=== PATIENT | male | born 1950 | race Caucasian/White ===

== ENCOUNTER → 2019-03-24 16:15 | Outpatient (CLI) | payer MEDICARE, SELFPAY ==
[2015-02-05 16:04] VITALS: BMI 36.8
[2019-03-24 17:35] LABS: Microalbumin,Random Urine 23.1 mg/L (NO RANGE EST.)
[2019-03-24 17:41] LABS: Anion Gap 5 (5-15); BUN 34 mg/dL (7-18); BUN/Creat Ratio 17.4 RATIO (10-20); Chloride 104 mmol/L (98-107); Cholesterol 130 mg/dL (200); Creatinine, Serum 1.95 mg/dL (0.70-1.30); EST Glomerular Filtration Rate 37 mL/min (>60); Est Glom Filt Rate - Afr Amer 44 mL/min (>60); Glucose 125 mg/dL (74-106); High Density Lipoprotein 29 mg/dL; PSA,Total - Annual Screen 3.19 ng/mL (0.00-4.00); Potassium 4.5 mmol/L (3.5-5.1); Sodium Level 139 mmol/L (136-145); Triglycerides 355 mg/dL; Very Low Density Lipoprotein 71 mg/dL (5-40)
== END ==
PROVIDERS: Family Provider Preventive Medicine Occupational Medicine; PCP Preventive Medicine Occupational Medicine; Referring Provider Preventive Medicine Occupational Medicine; Visit Provider Preventive Medicine Occupational Medicine
DX: E11.9 Type 2 diabetes mellitus without complications (principal); E78.5 Hyperlipidemia, unspecified; I10 Essential (primary) hypertension; Z12.5 Encounter for screening for malignant neoplasm of prostate
CPT/HCPCS: 36415; 80048; 80061; 82043; 83036; 84153; G0103